=== PATIENT | female | born 1985 | race Caucasian/White ===

== ENCOUNTER 2024-01-28 11:07 | Emergency (ER) | payer BC, MEDICAID ==
[2024-01-28 11:19] VITALS: PULSE 60
[2024-01-28] MEDS: diphenhydrAMINE 50 MG/ML SDV IVPUSH ONE (12:20)
[2024-01-28] MEDS: Metoclopramide 10 MG/2 ML SDV IVPUSH ONE (12:22)
[2024-01-28] MEDS: Ketorolac 30 MG/ML SDV IVPUSH ONE (12:24)
[2024-01-28] MEDS: Orphenadrine 60 MG/2 ML Inj IV ONE (12:26)
[2024-01-28] MEDS: Lactated Ringers 1,000 ML IV ONE (12:29)
[2024-01-28 13:43] VITALS: BP 123/78
== END 2024-01-28 13:37 | disposition home or self-care (01) ==
LOC: JD.ED 11:07
DX: R51.9 Headache, unspecified (principal); F17.210 Nicotine dependence, cigarettes, uncomplicated; E66.9 Obesity, unspecified; J45.909 Unspecified asthma, uncomplicated; Z79.899 Other long term (current) drug therapy; Z88.0 Allergy status to penicillin; Z91.040 Latex allergy status; Z68.33 Body mass index [BMI] 33.0-33.9, adult
CPT/HCPCS: 96361; 96374; 96375; 99283; J1200; J1885; J2360; J2765; J7120; 99284

== ENCOUNTER 2025-03-20 17:04 | Emergency (ER) | payer MEDICAID ==
[2025-03-20 17:32] VITALS: BP 137/96; PULSE 96
== END 2025-03-20 17:25 ==
LOC: JD.ED 17:04
DX: Z02.89 Encounter for other administrative examinations (principal); J45.909 Unspecified asthma, uncomplicated; E66.9 Obesity, unspecified; Z79.899 Other long term (current) drug therapy; Z88.0 Allergy status to penicillin; Z91.040 Latex allergy status; Z86.73 Personal history of transient ischemic attack (TIA), and cerebral infarction without residual deficits; Z68.38 Body mass index [BMI] 38.0-38.9, adult
CPT/HCPCS: 99283